=== PATIENT | female | born 1975 | race Caucasian/White ===

== ENCOUNTER 2016-11-25 18:09 | Emergency (ER) | payer OTHER ==
[2016-11-25 20:58] VITALS: BP 139/87
== END 2016-11-25 20:58 | disposition home or self-care (01) ==
LOC: ED 18:09
DX: S90.121A Contusion of right lesser toe(s) without damage to nail, initial encounter (principal); W22.01XA Walked into wall, initial encounter; Y93.89 Activity, other specified; Y92.89 Other specified places as the place of occurrence of the external cause; Y99.8 Other external cause status
CPT/HCPCS: J1885

== ENCOUNTER 2017-11-19 13:12 | Inpatient (IN) | payer OTHER ==
[~2017-11-19] VITALS: Ht 152.4 cm; Wt 85.7 kg
[2017-11-19 14:55] LABS: CALCIUM 8.1 mg/dL (8.5-10.1); CARBON DIOXIDE 23.3 mmol/L (21-32); CHLORIDE SERUM 104 mmol/L (98-107); CREATININE SERUM 0.7 mg/dL (0.6-1.0); GFR1 > 60 mL/min; GLUCOSE SERUM 90 mg/dL (74-106); SODIUM SERUM 137 mmol/L (136-145)
[2017-11-19 14:59] LABS: ALBUMIN 3.5 g/dL (3.4-5.0); ALKALINE PHOSPHATASE 63 U/L (46-116); ALT/SGPT 33 U/L (14-59); AMYLASE 58 U/L (25-115); AST/SGOT 28 U/L (15-37); BILIRUBIN TOTAL 0.7 mg/dL (0.20-1.00); CHOLESTEROL 196 mg/dL (<200); HDL CHOLESTEROL 48 mg/dL (40-60); LIPASE 200 IU/L (73-393); TOTAL PROTEIN, SERUM 7.5 g/dL (6.4-8.2)
[2017-11-19 15:05] LABS: BASOPHIL % 0.3 % (0-2); PLATELET COUNT 393 x10^3mcL (130-400)
[2017-11-19 15:14] LABS: microscopic required? NO
[2017-11-19 15:29] LABS: UA SPECIFIC GRAVITY <=1.005 (1.005-1.035); urine erythrocyte NEGATIVE (NEGATIVE)
[2017-11-19 15:33] LABS: RED CELL DISTRIBUTION WIDTH 16.6 % (11.5-14.5)
[2017-11-19 15:49] LABS: AMPHETAMINE QUAL UR NONE DETECTED (See below)
[2017-11-19 16:14] LABS: rbc morphology (normal/abnorm) ABNORMAL (NORMAL)
[2017-11-19 18:35] LABS: T3 TOTAL 1.25 ng/mL
[2017-11-19 18:41] LABS: MAGNESIUM 2.1 mg/dL (1.8-2.4); PHOSPHOROUS 3.6 mg/dL (2.5-4.9)
[2017-11-19 18:52] LABS: FREE T4 1.11 ng/dL (0.76-1.46); FREE THYROXINE INDEX 3.1 ug/dL (1.4-4.5); T4(THYROXINE) 9.8 ug/dL (4.7-13.3)
[2017-11-19 19:52] VITALS: BP 131/80
[2017-11-19 19:59] VITALS: Ht 152.4 cm; Wt 85.7 kg
[2017-11-20 00:46] LABS: IRON 10 ug/dL (50-170); TOTAL IRON BINDING CAPACITY 548 ug/dL (250-450)
[2017-11-20 05:50] VITALS: BP 105/58
[2017-11-20 09:07] VITALS: BP 117/68
[2017-11-20] MEDS ORDERED: MOT800 PO (10:27)
[2017-11-20] MEDS ORDERED: FERROUS SULFAT325 M2 PO (10:51)
[2017-11-20] MEDS ORDERED: COLACE100 MG PO (10:51)
[2017-11-20] MEDS ORDERED: VITAMIN C PURE500 MG PO (10:51)
[2017-11-20 12:08] VITALS: BP 117/68
[2017-11-20 13:04] VITALS: BP 131/83
[2017-11-20 19:28] LABS: RED BLOOD CELLS 4.3 M/mm3 (4.10-5.10)
== END 2017-11-20 13:25 | disposition home or self-care (01) | DRG 203 ==
LOC: ED 13:12 → DU 17:52
PROVIDERS: Emergency Medicine; Family Medicine
DX: M94.0 Chondrocostal junction syndrome [Tietze] (principal); M32.9 Systemic lupus erythematosus, unspecified; D50.0 Iron deficiency anemia secondary to blood loss (chronic); E78.5 Hyperlipidemia, unspecified; Z90.49 Acquired absence of other specified parts of digestive tract; E66.9 Obesity, unspecified
CPT/HCPCS: 83880; 84439; 85378; J2916; J7030

== ENCOUNTER 2018-11-23 12:48 | Observation (INO) | payer OTHER ==
[~2018-11-23] VITALS: Ht 152.4 cm; Wt 83.9 kg
[~2018-11-23 12:48] MED LIST: COLACE100 MG PO; FERROUS SULFAT325 M2 PO; MOT800 PO; VITAMIN C PURE500 MG PO
--- NOTE | 2018-11-23 12:54 | NUR ---
EKG IN PROGRESS
--- NOTE | 2018-11-23 12:54 | NUR ---
PT SENT BACK TO LOBBY TO AWAIT BED. PT INSTRUCTED ON HOW TO USE DOOR DANG IN CASE OF A CHANGE IN CONDITION. PT AAOX4, RESPS E/U, SKING IS PINK, WARM AND DRY, PT CALM AND COOPERAIVE.
[2018-11-23 13:32] LABS: BASOPHIL % 0.4 % (0-2)
[2018-11-23 13:40] LABS: PLATELET COUNT 447 x10^3mcL (130-400); RED CELL DISTRIBUTION WIDTH 18.4 % (11.5-14.5)
[2018-11-23 13:41] LABS: CALCIUM 9.5 mg/dL (8.5-10.1); CARBON DIOXIDE 24.9 mmol/L (21-32); CHLORIDE SERUM 106 mmol/L (98-107); CREATININE SERUM 0.7 mg/dL (0.6-1.0); GFR1 > 60 mL/min; GLUCOSE SERUM 100 mg/dL (74-106); POTASSIUM SERUM 4.4 mmol/L (3.5-5.1); SODIUM SERUM 142 mmol/L (136-145)
[2018-11-23 13:46] LABS: ALBUMIN 3.7 g/dL (3.4-5.0); ALKALINE PHOSPHATASE 58 U/L (46-116); ALT/SGPT 33 U/L (14-59); AST/SGOT 19 U/L (15-37); BILIRUBIN TOTAL 0.9 mg/dL (0.20-1.00); TOTAL PROTEIN, SERUM 7.3 g/dL (6.4-8.2)
--- NOTE | 2018-11-23 13:49 | NUR ---
PT COMES TO ER WITH C/O ANTERIOR CHEST WALL PAIN THAT RADIATES TO LEFT UPPER BACK PAIN-INTERMITTENT GRADUAL ONSET SINCE LAST NIGHT. PRESSURE IN SENSATION 4/10 AT THIS TIME. STATES WORSENING IN THE LAST 2 WEEKS, NON PROVOKED. ALSO C/O LEFT LEG NUMBNESS/TINGLING, DENIES BACK PAIN OR DYSURIA. RESP EVEN AND UNLABORED, ON RA @99%. SKIN W/D/I. ABD LARGE/OBESE, REPORTS MILD NAUSEA, NO VOMITING. NO PEDAL EDEMA NOTED. SKIN W/D/I. DENIES ANY ACUTE INJURY TO LEG. WAIITTOÑO FOR ER MD RUBIO. WILL CONT TO MONITOR ORDERED.
--- NOTE | 2018-11-23 14:58 | NUR ---
NO ACUTE CHNAGES IN CONDITION, WAITIONF FOR DISPO.
--- NOTE | 2018-11-23 16:01 | NUR ---
PT WITH EYES CLOSED, IN NAD.
--- NOTE | 2018-11-23 16:37 | NUR ---
MEDICATED ORDERED FOR CHEST PAIN, WILL CONT TO MONITOR FOR RELIEF OF ANTERIOR CHEST WALL DISCOMFORT.
[2018-11-23 17:01] LABS: T4(THYROXINE) 9.2 ug/dL (4.7-13.3)
--- NOTE | 2018-11-23 18:25 | NUR ---
PT WITH EYES CLOSED, IN NAD. RESP EVEN AND UNLABORED, ON MONITOR NSR.
--- NOTE | 2018-11-23 18:46 | NUR ---
PT C/O HEADACHE, DR FERNÁNDEZ INFORMED, [place] ORDER FOR A GRAM OF TTYLENOL, GIVEN ORDERED.
[2018-11-23 18:48] LABS: UA SPECIFIC GRAVITY 1.015 (1.005-1.035); microscopic required? YES; urine erythrocyte 2+ (NEGATIVE)
[2018-11-23 19:01] LABS: AMPHETAMINE QUAL UR NONE DETECTED (See below)
--- NOTE | 2018-11-23 20:14 | NUR ---
DR. WANG HANDKERCHIEF SAMPLE CLERK AT BEDSIDE SPEAKING WITH PT POC
--- NOTE | 2018-11-23 20:25 | NUR ---
GAVE REPORT TO MAHAMED LUCIANO.
--- NOTE | 2018-11-23 20:29 | NUR ---
PER DAMON BAXTER TO SEND TO TELE
--- NOTE | 2018-11-23 20:47 | NUR ---
RECEIVED PT FROM ED VIA [employer], CAME IN DUE TO NUMBNESS ON UPPER AND LOWER EXTREMITIES X3 DAYS AND LEFT SIDED CHEST PAIN X2 DAYS. AAOX4. C/O HEADACHE/ DIZZINESS. C/O MILD SOB WORSE ON AMBULATION, LUNG SOUNDS CTA. DENIES CHEST PAIN/PRESSURE, SR ON THE MONITOR. C/O NAUSEA. VOIDS. C/O NUMBNESS ON BLE, AMBULATORY, PULSES ARE PALPABLE. NO EDEMA NOTED. SIDE RAILS UPX2. CALL LIGHT ON REACH. ENDORSED TO PRIMARY NURSE MUSTAPHA FOR CONTINUITY OF CARE
[2018-11-23 21:35] VITALS: BP 108/51
[2018-11-23 21:42] VITALS: Ht 152.4 cm; Wt 83.9 kg
--- NOTE | 2018-11-24 00:11 | NUR ---
LATE ENTRY: - AWAKE AND ALERT, ORIENTED TO NAME, PLACE, TIME AND SITUATION. SPEECH CLEAR AND APPROPRIATE. STATED HAVING HEADACHE, STATED HAD HEADACHE WHEN SHE CAME IN, BUT WORSENED WHEN SHE RECEIVED NITRO IN ER. STATED TYLENOL DID NOT HELP MUCH. NORCO TABLET ADMINISTERED PO FOR PAIN. BREATHING EVEN AND UNLABORED. SALINE LOCK TO RIGHT FOREARM. FLUSHED WELL.
--- NOTE | 2018-11-24 00:12 | NUR ---
EYES CLOSED, BREATHING EVEN AND UNLABORED. EARLIER STATED HEADACHE HAS MOSTLY GONE AWAY, HAVING LITTLE TO NO CHEST PAIN OR DISCOMFORT. SINUS RHYTHM ON TELE.
--- NOTE | 2018-11-24 02:28 | NUR ---
EYES CLOSED, BREATHING EVEN AND UNLABORED ON ROOM AIR. CALL LIGHT WITHIN EASY REACH.
[2018-11-24 05:42] VITALS: BP 108/33
[2018-11-24 06:29] LABS: CALCIUM 8.8 mg/dL (8.5-10.1); CARBON DIOXIDE 24.4 mmol/L (21-32); CHLORIDE SERUM 106 mmol/L (98-107); CREATININE SERUM 0.7 mg/dL (0.6-1.0); GFR1 > 60 mL/min; GLUCOSE SERUM 96 mg/dL (74-106); MAGNESIUM 2.1 mg/dL (1.8-2.4); SODIUM SERUM 142 mmol/L (136-145)
--- NOTE | 2018-11-24 06:33 | NUR ---
EYES CLOSED, BREATHING EVEN AND UNLABORED ON ROOM AIR, SINUS RHYTHM ON TELE, HR 83/MIN. CALL LIGHT WITHIN EASY REACH.
[2018-11-24 07:00] LABS: CHOLESTEROL/HDL RATIO 5.3
--- NOTE | 2018-11-24 07:22 | NUR ---
awake and alert, denies having chest pain. in no acute distress endorsed to nurse imani
--- NOTE | 2018-11-24 07:35 | NUR ---
RECEIVED PT IN BED. ASSESSED AND DOCUMENTED. DENIES ANY PAIN. STABLE. SAFTEY PRECAUTIONS ARE IN PLACE. WILL MONITOR.
[2018-11-24 09:21] VITALS: BP 102/54
--- NOTE | 2018-11-24 10:32 | NUR ---
PT WAS C/O HEADACHE AT 0932, TYLENOL PO GIVEN AND REASSESSED AT 1032 AND PT SAID SHE DOESNOT HAVE ANY HEADACHE ANYMORE.
[2018-11-24 12:32] VITALS: BP 108/43
--- NOTE | 2018-11-24 13:00 | NUR ---
PT RESTING IN BED COMFORTABLY. DENIES ANY CHEST PAIN. CAME AND SPOKE WITH PT. HE SAID HE WILL DISCHARGE THE PT.
[2018-11-24 14:03] VITALS: BP 108/43
--- NOTE | 2018-11-24 15:00 | NUR ---
DISCHARGE INSTRUCTIONS GIVEN. PB SIGNED AND SENT WITH PT. IV AND TELE REMOVED. DENIES ANY PAIN. PT'S AD CAME TO LICENSED MASSAGE THERAPIST PT. TERRAZZO LAYER WHEELED PT DOWN TO LOBBY ACCOMPANIED WITH AD. PT DC HOME.
== END 2018-11-24 15:44 | disposition home or self-care (01) | DRG 243 ==
LOC: ED 12:48 → DU 20:00
PROVIDERS: Emergency Medicine; ADMIT Internal Medicine Pulmonary Disease
DX: K21.9 Gastro-esophageal reflux disease without esophagitis (principal); M32.9 Systemic lupus erythematosus, unspecified; E78.00 Pure hypercholesterolemia, unspecified; E66.9 Obesity, unspecified; Z68.36 Body mass index [BMI] 36.0-36.9, adult
CPT/HCPCS: 83880; 85378; G0378; J1650